=== PATIENT | male | born 1955 | race Two or more races ===

== ENCOUNTER → 2016-08-24 | Outpatient (CLI) | payer BC ==
[~2016-08-24] MED LIST: BENA40TA2 PO; RABE20TA5 PO
[2016-08-24 12:24] LABS: Basophils # (auto) 0.1 uL; Basophils % (auto) 0.7 % (0.0-2.0); Eosinophils # (auto) 0.1 uL; Eosinophils % (auto) 1.9 % (0.0-7.0); Hematocrit 42.3 % (41.0-53.0); Hemoglobin 14.2 g/dL (13.5-17.5); Lymphocytes # (auto) 2.3 uL; Lymphocytes % (auto) 29.5 % (10.0-50.0); Mean Corpuscular Hemoglobin 30.3 pg (28.0-32.0); Mean Corpuscular Hgb Conc. 33.5 g/dL (32.0-36.0); Mean Corpuscular Volume 90.4 fL (80.0-100.0); Mean Platelet Volume 8.2 fL (7.4-10.4); Monocytes # (auto) 0.7 uL; Monocytes % (auto) 8.5 % (0.0-12.0); Neutrophils # (auto) 4.6 uL; Neutrophils % (auto) 59.4 % (37.0-80.0); Platelet Count (auto) 332 10^3/uL (140-450); Red Cell Distribution Width 14.1 % (11.6-16.0); Urine Bilirubin Negative (Negative); Urine Blood Negative /uL (Negative); Urine Color Yellow (Yellow); Urine Glucose Normal (Normal); Urine Ketone Negative (Negative); Urine Nitrite Negative (Negative); Urine RBC <1 /hpf (0 - 3); Urine Squamous Epithelial Cell FEW /hpf (<5); Urine Urobilinogen Normal (Negative); Urine pH 7.5 (5.0-8.0); White Blood Cell 7.7 10^3/uL (4.4-10.8)
[2016-08-24 12:26] LABS: Albumin 4.1 g/dL (3.4-5.0); BUN/Creatinine Ratio 18.2; Bilirubin, Total 0.4 mg/dL (0.2-1.0); Calcium 9.5 mg/dL (8.5-10.1); Potassium 4.3 mmol/L (3.5-5.1)
== END | disposition home or self-care (01) ==
LOC: LAB 11:24
DX: E55.9 Vitamin D deficiency, unspecified (principal); E11.40 Type 2 diabetes mellitus with diabetic neuropathy, unspecified; N40.0 Benign prostatic hyperplasia without lower urinary tract symptoms; Z12.11 Encounter for screening for malignant neoplasm of colon
CPT/HCPCS: 36415; 80053; 80061; 81001; 82043; 82270; 82306; 83036; 84443; 85025

== ENCOUNTER → 2016-08-28 | Outpatient (CLI) | payer BC ==
[2016-08-28 16:34] LABS: Temperature: 23.3 C (20.0-25.0)
== END | disposition home or self-care (01) ==
LOC: LAB 08:03
PROVIDERS: ATTEND Psychiatry & Neurology Neurology
DX: E11.42 Type 2 diabetes mellitus with diabetic polyneuropathy (principal); G56.00 Carpal tunnel syndrome, unspecified upper limb
CPT/HCPCS: 36415; 82607; 82746; 84155; 84165; 84436; 84443

== ENCOUNTER 2021-12-17 08:24 | Inpatient (IN) | payer BC, MEDICARE ==
[~2021-12-17] VITALS: Ht 172.7 cm; Wt 86.6 kg
[~2021-12-17 08:24] MED LIST changes: -BENA40TA2 PO; +BENA40TA8 PO; +RABE20TA19 PO; -RABE20TA5 PO
[2021-12-17] MEDS ORDERED: SODIUM CHLORIDE 0.9% 1,000 ML IV ONE ×3 (08:30→11:00)
[2021-12-17 08:58] LABS: Basophils # (auto) 0.1 10 ^3/uL (0-0.2); Basophils % (auto) 0.7 % (0.0-2.0); Eosinophils # (auto) 0.1 10 ^3/uL (0-0.8); Eosinophils % (auto) 0.5 % (0.0-7.0); Hematocrit 41.4 % (41.0-53.0); Hemoglobin 13.9 g/dL (13.5-17.5); Lymphocytes % (auto) 18.6 % (10.0-50.0); Mean Corpuscular Hemoglobin 28.7 pg (28.0-32.0); Mean Corpuscular Hgb Conc. 33.5 g/dL (32.0-36.0); Mean Corpuscular Volume 85.7 fL (80.0-100.0); Monocytes # (auto) 0.8 10 ^3/uL (0-1.3); Monocytes % (auto) 7.5 % (0.0-12.0); Neutrophils % (auto) 72.7 % (37.0-80.0); Nucleated Red Blood Cells % 0.1 %; Red Blood Cells 4.84 10^6/uL (4.5-5.90); Red Cell Distribution Width 14.8 % (11.8-14.3)
[2021-12-17 09:17] LABS: Albumin 4.1 g/dL (3.4-5.0); Calcium 10.5 mg/dL (8.5-10.1); Potassium 3.3 mmol/L (3.5-5.1)
[2021-12-17 09:21] LABS: BUN/Creatinine Ratio 10.5; Bilirubin, Total 0.9 mg/dL (0.2-1.0); Total Protein 8.5 g/dL (6.4-8.2)
[2021-12-17] MEDS ORDERED: InsuLIN REG 1unit/0.01ml Soln (100units/ml) IV ONE (11:00)
[2021-12-17] MEDS ORDERED: metroNIDAZOLE 500MG/100ML 100 ML IV ONE (11:00)
[2021-12-17] MEDS: SODIUM CHLORIDE 0.9% 1,000 ML IV SCH ×3 (12:30→20:44)
[2021-12-17] MEDS ORDERED: ONDANSETRON HCL 4 MG/2 ML VIAL IV PRN (12:30)
[2021-12-17] MEDS ORDERED: MORPHINE SULFATE INJ 2 MG/ml SYRG IV PRN (12:30)
[2021-12-17] MEDS ORDERED: NITROGLYCERIN 0.4 MG SL TAB SL PRN (12:30)
[2021-12-17] MEDS ORDERED: ACETAMINOPHEN 325 MG TAB PO PRN (12:30)
[2021-12-17] MEDS ORDERED: DEXTROSE (50%) 50ML SYRG IV PRN (12:30)
[2021-12-17 12:31] LABS: Lactic Acid w/Reflex 2.6 mmol/L (0.4-2.0)
[2021-12-17 13:56] LABS: Protein, Urine 101.1 mg/dL (0.0-11.9)
[2021-12-17] MEDS: DOPamine 1600MCG/ML D5W 250 ML IV SCH (14:01)
[2021-12-17] MEDS: POTASSIUM CHL 20MEQ/100ML 100 ML IV SCH ×2 (14:10→16:10)
[2021-12-17 14:13] LABS: Magnesium 2.1 mg/dL (1.6-2.6)
[2021-12-17 14:15] LABS: Phosphorus 4.8 mg/dL (2.5-4.90)
[2021-12-17 14:22] LABS: Urine Bacteria NONE SEEN /hpf (None Seen); Urine Blood 1+ /uL (Negative); Urine Hyaline Cast MANY /lpf (0 - 2); Urine Mucus FEW (None Seen); Urine Specific Gravity 1.019 (1.001-1.035); Urine WBC 37 /hpf (0 - 3)
[2021-12-17] MEDS: ACCU-CHEK COMFORT CURVE STRIP VI SCH ×2 (16:57→22:16)
[2021-12-17] MEDS: InsuLIN REG 1unit/0.01ml Soln (100units/ml) SC SCH ×2 (18:06→21:58)
[2021-12-18] VITALS (36 sets, daily range): BP systolic 89–149; BP diastolic 47–83
[2021-12-18] MEDS: SODIUM CHLORIDE 0.9% 1,000 ML IV SCH ×3 (04:30→20:30)
[2021-12-18 05:48] LABS: Basophils # (auto) 0 10 ^3/uL (0-0.2); Basophils % (auto) 0.2 % (0.0-2.0); Eosinophils # (auto) 0.2 10 ^3/uL (0-0.8); Eosinophils % (auto) 2.3 % (0.0-7.0); Hematocrit 35.1 % (41.0-53.0); Hemoglobin 11.5 g/dL (13.5-17.5); Lymphocytes # (auto) 1.5 10 ^3/uL (0.4-5.4); Lymphocytes % (auto) 19.3 % (10.0-50.0); Mean Corpuscular Hemoglobin 28.4 pg (28.0-32.0); Mean Corpuscular Hgb Conc. 32.8 g/dL (32.0-36.0); Mean Corpuscular Volume 86.6 fL (80.0-100.0); Monocytes # (auto) 0.6 10 ^3/uL (0-1.3); Monocytes % (auto) 8.4 % (0.0-12.0); Neutrophils # (auto) 5.3 10 ^3/uL (1.6-8.6); Neutrophils % (auto) 69.8 % (37.0-80.0); Nucleated Red Blood Cells % 0.2 %; Red Blood Cells 4.05 10^6/uL (4.5-5.90); Red Cell Distribution Width 14.9 % (11.8-14.3); White Blood Cell 7.5 10^3/uL (4.4-10.8)
[2021-12-18 06:03] LABS: Albumin 2.8 g/dL (3.4-5.0); BUN/Creatinine Ratio 14.7; Calcium 7.6 mg/dL (8.5-10.1); Potassium 3.1 mmol/L (3.5-5.1)
[2021-12-18 06:06] LABS: Bilirubin, Total 0.6 mg/dL (0.2-1.0)
[2021-12-18] MEDS: ACCU-CHEK COMFORT CURVE STRIP VI SCH ×4 (06:56→21:31)
[2021-12-18] MEDS ORDERED: POTASSIUM CHL 20MEQ/100ML 100 ML IV SCH (09:15)
[2021-12-18] MEDS ORDERED: ENOXAPARIN SOD 30 MG/0.3 ML SYRINGE SC SCH (10:00)
[2021-12-18] MEDS: PANTOPRAZOLE 40 MG TAB PO SCH (10:45)
[2021-12-18] MEDS ORDERED: RIVA10TA PO (11:21)
[2021-12-18] MEDS ORDERED: LISI20TA28 PO (11:22)
[2021-12-18] MEDS ORDERED: ASPI-543 PO (11:22)
[2021-12-18] MEDS ORDERED: ATOR20TA PO (11:22)
[2021-12-18] MEDS ORDERED: REPA1TAB5 OR (11:22)
[2021-12-18] MEDS ORDERED: OMEP20TA PO (11:23)
[2021-12-18] MEDS: InsuLIN REG 1unit/0.01ml Soln (100units/ml) SC SCH ×3 (11:30→21:29)
[2021-12-18] MEDS ORDERED: POTASSIUM CHLORIDE 40 MEQ, LIDOCAINE 1% (LOCAL ANESTH.) 4 ML in SODIUM CHL 0.9% 250 ML IV ONE (11:30)
[2021-12-18] MEDS: DOPamine 1600MCG/ML D5W 250 ML IV SCH (16:05)
[2021-12-18] MEDS: cefTRIAXone 1GM/50ML D5W 50 ML IV SCH (21:06)
[2021-12-18] MEDS ORDERED: QUEtiapine FUMARATE 25 MG TAB PO SCH (22:00)
[2021-12-18 23:55] LABS: Lipase 476 U/L (73-393)
[2021-12-19] VITALS (8 sets, daily range): BP systolic 99–150; BP diastolic 48–85
[2021-12-19 00:01] LABS: Alkaline Phosphatase 81 U/L (45-117)
[2021-12-19] MEDS ORDERED: TEMAZEPAM 15 MG CAP PO ONE ×2 (01:15→22:00)
[2021-12-19] MEDS: SODIUM CHLORIDE 0.9% 1,000 ML IV SCH ×3 (04:06→20:40)
[2021-12-19] MEDS: ACCU-CHEK COMFORT CURVE STRIP VI SCH ×4 (06:09→22:11)
[2021-12-19] MEDS: InsuLIN REG 1unit/0.01ml Soln (100units/ml) SC SCH ×4 (06:09→17:17)
[2021-12-19] MEDS: cefTRIAXone 1GM/50ML D5W 50 ML IV SCH (09:17)
[2021-12-19] MEDS: PANTOPRAZOLE 40 MG TAB PO SCH (09:17)
[2021-12-19 09:43] LABS: Calcium 8.1 mg/dL (8.5-10.1); Potassium 3.5 mmol/L (3.5-5.1)
[2021-12-19 09:46] LABS: BUN/Creatinine Ratio 21.6
[2021-12-19 12:00] LABS: Hepatitis C Antibody Negative (Negative)
[2021-12-19] MEDS ORDERED: FINASTERIDE 5 MG TAB PO ONE (12:30)
[2021-12-19] MEDS ORDERED: chlorproMAZINE HCL 25 MG TAB PO PRN (12:45)
[2021-12-19] MEDS: chlorproMAZINE HCL 25 MG/1 ML AMP IM PRN (14:41)
[2021-12-19] MEDS ORDERED: TAMSULOSIN HYDROCHLORIDE 0.4 MG CAP PO SCH (18:00)
[2021-12-20 05:00] VITALS: BP 132/79
[2021-12-20] MEDS: ACCU-CHEK COMFORT CURVE STRIP VI SCH ×3 (05:44→17:00)
[2021-12-20] MEDS: InsuLIN REG 1unit/0.01ml Soln (100units/ml) SC SCH ×3 (05:47→17:00)
[2021-12-20] MEDS: chlorproMAZINE HCL 25 MG/1 ML AMP IM PRN (05:53)
[2021-12-20] MEDS: SODIUM CHLORIDE 0.9% 1,000 ML IV SCH ×2 (06:11→12:30)
[2021-12-20 06:22] LABS: Calcium 7.9 mg/dL (8.5-10.1)
[2021-12-20 06:25] LABS: BUN/Creatinine Ratio 21.9
[2021-12-20] MEDS: cefTRIAXone 1GM/50ML D5W 50 ML IV SCH (09:20)
[2021-12-20] MEDS: PANTOPRAZOLE 40 MG TAB PO SCH (09:20)
[2021-12-20] MEDS ORDERED: FINASTERIDE 5 MG TAB PO SCH (10:00)
[2021-12-20] MEDS ORDERED: TAM04C PO (13:51)
[2021-12-20] MEDS ORDERED: FIN5T PO (13:51)
[2021-12-20 14:36] VITALS: BP 112/59
== END 2021-12-20 17:10 | disposition home or self-care (01) | DRG 871 ==
LOC: ER 08:24 → TELE 12:16 → DOU IN ICU 12-18 07:54 → TELE-EAST 12-19 21:50
PROVIDERS: ADMIT Hospitalist; ATTEND Hospitalist
DX: A41.9 Sepsis, unspecified organism (principal); E11.10 Type 2 diabetes mellitus with ketoacidosis without coma; N17.0 Acute kidney failure with tubular necrosis; K92.2 Gastrointestinal hemorrhage, unspecified; N18.9 Chronic kidney disease, unspecified; E86.0 Dehydration; E11.22 Type 2 diabetes mellitus with diabetic chronic kidney disease; E87.6 Hypokalemia; N40.0 Benign prostatic hyperplasia without lower urinary tract symptoms; Z20.822 Contact with and (suspected) exposure to COVID-19; E11.65 Type 2 diabetes mellitus with hyperglycemia; Z82.49 Family history of ischemic heart disease and other diseases of the circulatory system
CPT/HCPCS: 36415; 36600; 70450; 71045; 74176; 76775; 80048; 80053; 81001; 82010; 82140; 82306; 82570; 82805; 82962; 83036; 83605; 83690; 83735; 83970; 84075; 84100; 84156; 84300; 84484; 85025; 86803; 87040; 87081; 87340; 87493; 96365; 96375; 99291; G0378; J0696; J1815; J2001; J2405; J3480; J3490